=== PATIENT | male | born 1970 | race Caucasian/White ===

== ENCOUNTER → 2021-07-17 05:19 | Outpatient (CLI) | payer OTHER, SELFPAY ==
[2021-07-17 17:46] LABS: SARS-CoV-2 RNA PCR Negative
== END ==
PROVIDERS: PCP Nurse Practitioner Adult Health; Visit Provider Internal Medicine Gastroenterology
DX: Z01.812 Encounter for preprocedural laboratory examination (principal); Z20.822 Contact with and (suspected) exposure to COVID-19
CPT/HCPCS: C9803; U0003; U0005

== ENCOUNTER 2021-07-20 01:44 | Day surgery (SDC) | payer OTHER, SELFPAY ==
[2021-07-02 13:56] VITALS: BMI 32.2
--- NOTE | 2021-07-17 18:38 | P.PNAN_ITS ---
Anes - Initial Pre Proc Eval Procedure: Operation Date: 07/20/21 10:30 Proposed Procedures p Screening Colonoscopy - Chandrakant Barbour MD Date/Time: 07/17/21 18:38 Surgeon: Chandrakant Barbour MD Pre Op Diagnosis: neoplasm screening Patient Data Age: 50 Gender: M Height: 1.78 m Weight: 102 kg Allergies Allergy/AdvReac Type Severity Reaction Status Date / Time No Known Allergies Allergy Verified 07/20/21 09:25 Home Medications Medication Instructions Recorded Confirmed Type omeprazole 20 mg PO DAILY 07/02/21 07/02/21 History pravastatin 20 mg PO DAILY 07/02/21 07/02/21 History Patient hx anesthesia problems: none Family hx anesthesia problems: none Results Review: All pre-operative results and documents have been reviewed as part of the pre-operative evaluation. [facility] Past Medical History Medical History (Updated 07/20/21 @ 09:39 by Peng Simms DO) GERD (gastroesophageal reflux disease) Hyperlipidemia Surgical History Surgical History (Updated 07/17/21 @ 18:38 by Peng Simms DO) History of appendectomy Social History Social History Smoking packs per day: 1 Smoking cigarettes per day: 20.0 Smoking status: Current every day smoker Tobacco type: cigarettes Living arrangements: with family Spiritual care concerns: No Anes - Eval Final PreProcedure Day of Procedure 07/17/21 18:38 Patient weight: obese Heart: regular rate and rhythm Lungs: clear to auscultation and normal air movement Airway: Mallampati scale class II Neurological: alert and oriented Last oral intake: >/= 8 hours ASA classification: III Emergent: no Anesthetic plan: proceed Anesthesia type and monitoring: general GIVS and standard monitoring Results Review: All pre-operative results and documents have been reviewed as part of the pre-operative evaluation. Informed Consent: The patient's anesthetic plan and its attendant risks and benefits were discussed with the patient/family/POA. Questions were solicited and answers provided to the satisfaction of the patient/family/POA.
[2021-07-20 09:26] VITALS: BP 145/64; PULSE 81; RESP 18; TEMP 36; O2SAT 100; BMI 31.9
[2021-07-20] MEDS: LACTATED RINGERS 1,000 ML 150 ML IV CONT (09:34)
--- NOTE | 2021-07-20 09:36 | WPDGICN ---
Assessment and Plan Assessment and plan (1) Encounter for screening colonoscopy: Code(s): Z12.11 - Encounter for screening for malignant neoplasm of colon Status: Acute GI Consult Note Consult date/time: 07/20/21 09:36 HPI: Osvaldo Lerma is a 50 year old male Presents for screening colonoscopy. Patient's current weight appetite bowel movements are normal. He denies abdominal pain. He has had no bleeding. Family history is noncontributory. Review of Systems Review of Systems: All systems reviewed & are unremarkable except as noted in HPI and below PMFSH Past Medical History Medical History (Updated 07/20/21 @ 09:39 by Peng Simms DO) GERD (gastroesophageal reflux disease) Hyperlipidemia Surgical History Surgical History (Updated 07/17/21 @ 18:38 by Peng Simms DO) History of appendectomy Social History Social History Smoking packs per day: 1 Smoking cigarettes per day: 20.0 Smoking status: Current every day smoker Tobacco type: cigarettes Living arrangements: with family Spiritual care concerns: No Meds Home Medications and Allergies Home Medications Medication Instructions Recorded Confirmed Type omeprazole 20 mg PO DAILY 07/02/21 07/02/21 History pravastatin 20 mg PO DAILY 07/02/21 07/02/21 History Allergies Allergy/AdvReac Type Severity Reaction Status Date / Time No Known Allergies Allergy Verified 07/20/21 09:25 Vital Signs Vital Signs - 24 hr 07/20/21 09:26 Temperature 96.8 F L Pulse Rate 81 Respiratory Rate 18 Blood Pressure 145/64 H Pulse Oximetry 100 Exam Narrative: Physical exam reveals patient to be alert. Vital signs stable. HEENT exam is unremarkable. Patient is anicteric. Lungs are clear to auscultation and percussion. Heart is without murmur or extra sounds. Abdominal exam is somewhat obese. Bowel sounds are present soft nontender with no hepatosplenomegaly. Extremities reveal tattoos bilaterally on his arms. Digital external rectal exam is unremarkable.
[2021-07-20 10:20] VITALS: BP 112/71; PULSE 82; RESP 18; O2SAT 96
[2021-07-20 10:30] VITALS: BP 118/88; PULSE 90; RESP 20; O2SAT 98
[2021-07-20 10:40] VITALS: BP 130/81; PULSE 86; RESP 20; O2SAT 97
== END 2021-07-20 10:55 | disposition home or self-care (01) ==
PROVIDERS: PCP Nurse Practitioner Adult Health; Visit Provider Internal Medicine Gastroenterology
PROC: 0DJD8ZZ Inspection of Lower Intestinal Tract, Via Natural or Artificial Opening Endoscopic (ICD-10-PCS; CPT 45378; principal; 2021-07-20 10:30)
DX: Z12.11 Encounter for screening for malignant neoplasm of colon (principal); K64.8 Other hemorrhoids; K21.9 Gastro-esophageal reflux disease without esophagitis; E78.5 Hyperlipidemia, unspecified; F17.210 Nicotine dependence, cigarettes, uncomplicated; E66.9 Obesity, unspecified; Z68.32 Body mass index [BMI] 32.0-32.9, adult
CPT/HCPCS: 45385; J2704; J7120

== ENCOUNTER 2022-04-13 13:40 | Outpatient (CLI) | payer OTHER, SELFPAY ==
--- NOTE | 2022-04-13 | ECHO_ITS ---
Patient Info Name: Osvaldo Lerma Age: 51 years : 1970 Gender: Male Ht: 69 in Wt: 150 lbs BSA: 1.82 m2 HR: 98 bpm BP: 150 / 96 mmHg Heart Rhythm: Sinus Rhythm Exam Date: 04/13/2022 2:19 PM Exam Location: [facility] Patient Status: Outpatient Admit Date: 04/13/2022 Staff Ordering Physician: AbdirahmanJolynn NP Crimping Machine Operator: Elmo Shea, YARED, RT Attending Provider: VivianJolynn NP Exam Type: CA echo doppler color flow Study Info Indications I51.7 - Cardiomegaly Complete two-dimensional, color flow and Doppler transthoracic echocardiogram is performed. Strain analysis performed. Summary 1. Complete two-dimensional, color flow and Doppler transthoracic echocardiogram is performed. 2. Left ventricular chamber dimension is normal. 3. Left ventricular systolic function is normal, estimated at 65-70%. 4. There is mildly increased left ventricular wall thickness. 5. The left ventricular diastolic function is grade I diastolic dysfunction. 6. There is no aortic valve stenosis. 7. Unable to estimate PA systolic pressure due to poor spectral resolution of tricuspid regurgitant jet velocity. 8. Technically difficult study with limited views. Left Ventricle Technically difficult study with limited views. Left ventricular chamber dimension is normal. Left ventricular systolic function is normal, estimated at 65-70%. There is mildly increased left ventricular wall thickness. The left ventricular diastolic function is grade I diastolic dysfunction. Global longitudinal strain is moderately elevated at -11 %. Right Ventricle Right ventricular chamber dimension is normal. Right ventricular systolic function is normal. Left Atria Left atrial chamber dimension is normal. Right Atria Right atrial chamber dimension is normal. Aortic Valve The aortic valve is not well visualized. There is no aortic valve stenosis. There is no aortic valve regurgitation. Pulmonic Valve The pulmonic valve is not well visualized. Mitral Valve The mitral valve has normal leaflets. There is no mitral valve regurgitation. The mitral valve annulus is mildly calcified. Tricuspid Valve The tricuspid valve leaflets are not well visualized. Unable to estimate PA systolic pressure due to poor spectral resolution of tricuspid regurgitant jet velocity. Pericardium/Pleural The pericardium appears epicardial fat pad. There is small pericardial effusion. Inferior Vena Cava Normal inferior vena cava with >50% collapse upon inspiration consistent with normal right atrial pressure, 5 mmHg. Aorta The aortic root size at the sinus of Valsalva is normal. Left Ventricular Outflow Tract Name Value Normal LVOT 2D LVOT Diameter 2.0 cm LVOT Doppler LVOT Peak Gradient 4 mmHg LVOT Mean Gradient 2 mmHg LVOT VTI 18 cm LVOT VTI/AV VTI Ratio 1.0 LVOT Stroke Volume 55 ml LVOT CO 5.4 l/min LVOT CI 3.0
== END 2022-04-13 13:41 | disposition home or self-care (01) ==
LOC: ANHCARD 13:42
PROVIDERS: PCP Nurse Practitioner Adult Health; Visit Provider Nurse Practitioner Adult Health
DX: I51.7 Cardiomegaly (principal)
CPT/HCPCS: 93306

== ENCOUNTER 2022-08-19 13:27 | Outpatient (CLI) | payer OTHER, SELFPAY ==
--- NOTE | 2022-08-19 18:05 | WPDPFTINT ---
PFT Procedure Performed PFT Procedure Performed Spirometry with Pre/Post Bronchodilator Plethysmography (Lung Vol) Diffusing Cap (DLCO) Flow Vol Loop PFT Interpretation This is a pulmonary function test with pre and post-bronchodilator spirometry, plethysmography and diffusing capacity. The test was performed and results interpreted in accordance with the 2019 and 2005 ATS/ERS Task Force guidelines respectively using the Global Lung Function Initiative-2012 reference equations. Patient demonstrated good effort and cooperation. Reproducibility criteria were met. The quality of the pre bronchodilator spirometry maneuver was Grade A and post bronchodilator spirometry maneuver was Grade A. Findings: Spirometry: The contour the inspiratory and expiratory flow tracing are normal. The pre bronchodilator FVC is 3.23 L, 66% predicted. The pre bronchodilator FEV1 is 2.78 L, 73% predicted. The pre bronchodilator FEV1: FVC ratio was 86%. The post bronchodilator FVC is 3.31 L, representing a 3% increase. The post bronchodilator FEV1 is 2.87 L, representing a 3% increase. The post bronchodilator FEV1: FVC ratio was 87%. Plethysmography: The total lung capacity is 4.61 L, 66% predicted. The functional residual capacity is 2.08 L, 58% predicted. The residual volume is 1.25 L, 59% predicted. Diffusing capacity: The diffusing capacity unadjusted for hemoglobin and carboxyhemoglobin is 18.3, 62% predicted. The diffusing capacity adjusted for alveolar volume is 4.62, 104% predicted. Impression: There is a mild restrictive ventilatory abnormality. The spirometry is normal without evidence of an obstructive abnormality. There is no significant improvement after inhaling a single dose of albuterol. The diffusing capacity unadjusted for hemoglobin and carboxyhemoglobin is mildly decreased and normalizes when adjusted for alveolar volume. There are no prior studies for comparison
== END 2022-08-19 13:28 | disposition home or self-care (01) ==
LOC: ANHPFT 13:28
PROVIDERS: PCP Nurse Practitioner Adult Health; Visit Provider Nurse Practitioner
DX: R06.09 Other forms of dyspnea (principal); R94.2 Abnormal results of pulmonary function studies
CPT/HCPCS: 94060; 94726; 94729

== ENCOUNTER 2022-10-02 07:27 | Outpatient (CLI) | payer OTHER, SELFPAY ==
--- NOTE | ~2022-10-02 | MR_ITS ---
EXAMINATION: MR lumbar spine wo con DATE: 10/02/2022 08:29 INDICATION: Radiculopathy, lumbar region. TECHNIQUE: Magnetic resonance imaging (MRI) of the lumbar spine was performed without intravenous con trast. Sequences included sagittal T2-weighted FSE, sagittal T2-weighted FS FSE, sagittal T1-weighted FSE, and axial T2-weighted FSE. COMPARISON: None FINDINGS: There is 8 degrees dextrocurvature of thoracolumbar spine. There are Schmorl's nodes at all levels. There is mild chronic anterior wedging of L1 vertebral body. Intervertebral disc heights are normal. The distal spinal cord signal intensity is normal. The conus medullaris is at L1. There is a 3.4 cm mass of left adrenal gland. The following disc levels are specifically discussed: L1-L2: The disc does not extend beyond the endplate margin. There is moderate bilateral facet joint o steoarthritis. There is no neural foraminal stenosis. There is no central canal stenosis. L2-L3: There is a right foraminal protrusion. There is mild bilateral facet joint osteoarthritis. The re is mild right neural foraminal stenosis. There is no central canal stenosis. L3-L4: There is a right foraminal protrusion. There is mild right and moderate left facet joint osteo arthritis. There is mild right neural foraminal stenosis. There is no central canal stenosis. L4-L5: The disc is bulging. There is moderate right and severe left facet joint osteoarthritis. There is mild bilateral neural foraminal stenosis. There is mild central canal stenosis. L5-S1: There is a central protrusion. There is moderate bilateral facet joint osteoarthritis. There i s no neural foraminal stenosis. There is mild central canal stenosis. IMPRESSION: 1. Mild lumbar spondylosis. 2. 3.4 cm mass of left adrenal gland. In the absence of known malignancy, this finding is likely an a denoma. Abdomen CT without and with contrast is recommended. Reviewed, dictated and finalized at location A. TIC MIXER IMPRESSION: 1. Mild lumbar spondylosis. 2. 3.4 cm mass of left adrenal gland. In the absence of known malignancy, this finding is likely an adenoma. Abdomen CT without and with contrast is recommend ed.
== END 2022-10-02 07:28 | disposition home or self-care (01) ==
PROVIDERS: PCP Nurse Practitioner Family; Visit Provider Nurse Practitioner Family
DX: M47.26 Other spondylosis with radiculopathy, lumbar region (principal)
CPT/HCPCS: 72148

== ENCOUNTER 2022-10-18 08:08 | Outpatient (CLI) | payer OTHER, SELFPAY ==
--- NOTE | 2022-10-18 14:59 | P.METCHAL_ITS ---
Methacholine Procedure Perform Procedure Performed Methacholine Challenge Methacholine Challenge Methacholine Challenge: This is a methacholine challenge test. The test was performed and interpreted in accordance with the 2017 ERS technical standard, endorsed by the ATS, using the GLI 2012 reference equations. Testing was performed with increasing doses of nebulized methacholine following a quadrupling dosage protocol. The methacholine dose was delivered via the Modriaist nebulizer using a 1-minutes tidal breathing protocol. The best post-methacholine FEV1 values were used to determine the change from the post diluent FEV1. The delivered dose of methacholine was used to calculate the provocative dose causing a 20% fall in FEV1 (PD 20). Findings: Baseline FEV1 2.85 L, 75% predicted. Post diluent FEV1 2.72 L Post 1.81 mcg methacholine FEV1 2.75 L, increased 1% Post 7.26 mcg methacholine FEV1 2.74 L, increased 1% Post 29.03 mcg methacholine FEV1 2.62 L, decreased 4% Post 116.1 mcg methacholine FEV1 2.53 L, decreased 7% Post 464.4 mcg methacholine FEV1 2.38 L, decreased 12% Post albuterol nebulization FEV1 2.60 L Impression: The PD20 is > 400 mcg which is categorized as normal airway hyperresponsiveness. There are no prior methacholine challenge studies for comparison
== END 2022-10-18 08:09 | disposition home or self-care (01) ==
PROVIDERS: PCP Nurse Practitioner Family; Visit Provider Nurse Practitioner
DX: J45.909 Unspecified asthma, uncomplicated (principal)
CPT/HCPCS: 94070; J7674

== ENCOUNTER 2022-10-20 07:32 | Outpatient (CLI) | payer OTHER, SELFPAY ==
--- NOTE | ~2022-10-20 | CT_ITS ---
CT Abdomen with and without contrast. History: Adrenal mass. Spiral CT of the abdomen was performed prior to and following administration of intravenous contrast. 100 cc of Omnipaque 350 was administered intravenously without complication. Precontrast imaging, po rtal venous phase imaging, and 15 minute delayed imaging was performed. Dose reduction technique was used on this scan by utilizing automated exposure control and iterative reconstruction technique. The dose-length product (DLP) was 2611.67 mGy-cm. Correlation made with lumbar spine MR dated 10/02/2022. Findings: Scans through the lung bases are unremarkable. The liver, spleen, pancreas, right adrenal gland, and kidneys are within normal limits. 2 cm gallston e present, with probable mild gallbladder wall thickening. No evidence of aortic aneurysm. No lympha denopathy is seen. 3.6 cm left adrenal mass is present. Precontrast Hounsfield units are approximately 15. Portal venous phase consequences 98. Delayed phase Hounsfield units is 40. Visualized bowel loops are unremarkable. No ascites seen. Impression: 3.6 cm left adrenal mass, as detailed above. Calculated absolute washout is 70%, calculated relative washout is 59 %. These values are highly suggestive of benign adrenal adenoma. Cholelithiasis. Suspected mild gallbladder wall thickening. If there is concern for acute gallbladder disease, consid er HIDA scan or ultrasound as indicated. Reviewed, dictated and finalized at [facility]. L CLEANER Impression: 3.6 cm left adrenal mass, as detailed above. Calculated absolute washout is 70% , calculated relative washout is 59 %. These values are highly suggestive of be nign adrenal adenoma. Cholelithiasis. Suspected mild gallbladder wall thickening. If there is concern for acute gallb ladder disease, consider HIDA scan or ultrasound as indicated.
== END 2022-10-20 07:33 | disposition home or self-care (01) ==
PROVIDERS: PCP Nurse Practitioner Family; Visit Provider Nurse Practitioner Family
DX: R19.09 Other intra-abdominal and pelvic swelling, mass and lump (principal); K80.20 Calculus of gallbladder without cholecystitis without obstruction
CPT/HCPCS: 74170; Q9967

== ENCOUNTER 2023-02-25 12:29 | Outpatient (CLI) | payer OTHER, SELFPAY ==
--- NOTE | 2023-02-25 | ECG_ITS ---
Measurements Intervals [place] Rate: 86 P: 47 TX: 140 QRS: 5 QRSD: 83 T: 70 QT: 370 QTc: 443 Interpretive Statements SINUS RHYTHM BASELINE WANDER- I, II, AVR, AVL, AVF NORMAL ECG NO PREVIOUS ECG AVAILABLE FOR COMPARISON Electronically Signed On 02-25-2023 13:23:20 CDT by Nicholas Iglesias D.O.
--- NOTE | ~2023-02-25 | XR_ITS ---
Clinical Indication: Preoperative evaluation PA and lateral views of the chest: Comparison: None Findings: The lungs are clear, without evidence of focal consolidation or pleural effusion. Cardiome diastinal silhouette is within normal limits. Bones and soft tissues are unremarkable. Impression: Normal chest. Reviewed, dictated and finalized at location . Impression: Normal chest.
== END 2023-02-25 12:30 | disposition home or self-care (01) ==
PROVIDERS: PCP Nurse Practitioner Family; Visit Provider Nurse Practitioner Family
DX: Z01.818 Encounter for other preprocedural examination (principal)
CPT/HCPCS: 71046; 93005

== ENCOUNTER 2023-07-29 14:15 | Outpatient (CLI) | payer OTHER, SELFPAY ==
--- NOTE | ~2023-07-29 | XR_ITS ---
XR shoulder LT min 2V 07/29/2023 14:45 INDICATION: Left shoulder pain after recent fall PROCEDURE: 4 views left shoulder COMPARISON: No prior studies for comparison. FINDINGS: Fracture, dislocation or subluxation is not identified. The soft tissues appear within norm al limits. No foreign bodies are identified. IMPRESSION: 1: NO ACUTE BONE OR JOINT ABNORMALITY IDENTIFIED. Reviewed, dictated and finalized at location B.
--- NOTE | ~2023-07-29 | CT_ITS ---
EXAMINATION: CT diagnostic chest wo con DATE: 07/29/2023 14:49 INDICATION: Abnormal findings of the lung field on diagnostic imaging TECHNIQUE: Computed tomography (CT) of the chest was performed without intravenous contrast. The dose -length product (DLP) was 613.47 mGy-cm. Automated exposure control and iterative reconstruction tech [id number] were employed. COMPARISON: None FINDINGS: The lungs are free of acute opacities. No pleural effusion or pneumothorax. Calcified coron tex artery atherosclerosis is noted. No pathologically enlarged thoracic lymph nodes are identified. The heart size is normal. There is mild bilateral gynecomastia. There is moderate thoracic spondylosi s. Cholelithiasis is noted. A left adrenal mass is noted which has been previously characterized as a probable adenoma. IMPRESSION: 1. No acute cardiopulmonary abnormality. Reviewed, dictated and finalized at location F.
== END 2023-07-29 14:16 | disposition home or self-care (01) ==
PROVIDERS: PCP Nurse Practitioner Family; Visit Provider Nurse Practitioner
DX: M25.512 Pain in left shoulder (principal)
CPT/HCPCS: 71250; 73030